=== PATIENT | male | born 2005 | race Caucasian/White ===

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

== ENCOUNTER 2024-04-15 13:54 | Emergency (ER) | payer BC, SELFPAY ==
--- NOTE | ~2024-04-15 | XR_ITS ---
HISTORY: INJURY TO LEFT ANKLE DANCING. MEDIAL AND LATERAL COMPARISON: None TECHNIQUE: 3 views of the left ankle were performed FINDINGS: No acute fracture or dislocation. Lateral soft tissue swelling. The ankle mortise is preserved. Bone mineralization is age-appropriate. IMPRESSION: Lateral soft tissue swelling without acute fracture. Reviewed, dictated and finalized at location A. T MACHINE OPERATOR
[2024-04-15 15:06] VITALS: BP 125/70; PULSE 82; RESP 16; TEMP 37.1; O2SAT 99
--- NOTE | 2024-04-15 15:24 | ED.LOWEXIN ---
HPI - Extremity Injury (Lower) General Chief Complaint: Extremity Injury, Lower Stated Complaint: Injured Left Ankle Time Seen by Provider: 04/15/24 15:17 Source: patient and RN notes reviewed Mode of arrival: ambulatory (hopped) Limitations: no limitations History of Present Illness HPI Narrative: Patient presents today complaining of an injury to his left ankle. States he rolled yesterday dancing. Denies numbness or tingling. Currently rates his pain 8/10 and has been taking Tylenol and ibuprofen without relief. States he has been unable to weightbear. Related Data Home Medications ?Medication ?Instructions ?Recorded ?Confirmed ?Last Taken ?Type No Home Medications 04/15/24 04/15/24 Unknown History Allergies Allergy/AdvReac Type Severity Reaction Status Date / Time No Known Allergies Allergy Verified 04/15/24 14:49 Review of Systems Review of Systems: CONSTITUTIONAL: Denies body aches, fever, chills, or sweats. EYES: Denies visual changes, redness, or discharge. ENT: Denies rhinorrhea, congestion, sore throat, or otalgia. CARDIOVASCULAR: Denies chest pain, palpitations, or edema. RESPIRATORY: Denies cough or dyspnea. GASTROINTESTINAL: Denies abdominal pain, nausea, vomiting, or diarrhea. GENITOURINARY: Denies dysuria or hematuria. SKIN: Denies rash, itching, or wounds. MUSCULOSKELETAL: Denies back pain, or myalgia.+ left ankle injury NEUROLOGIC: Denies headache, numbness, tingling, or weakness. PSYCH: Denies depression or anxiety. PMFSH Comments At time of signature, I have reviewed and agree with nursing past medical, surgical, social and family history unless otherwise noted. Please see nursing chart for further information. There is no relevant family history pertinent to the presenting complaint Exam Narrative: GENERAL: Well-appearing, well-nourished, and in no acute distress. HEAD: Normocephalic, atraumatic. EYES: EOMI. No redness or drainage. Conjunctivae normal. ENT: Mucous membranes pink and moist. NECK: Normal AROM. CHEST: No respiratory distress. EXTREMITIES: Left ankle: Tenderness and mild edema to the medial and lateral ankle. No tenderness to the foot. Distal sensation intact. Capillary refill normal. Pedal pulse normal. Limited range of motion of the ankle due to pain. SKIN: Warm, dry, no rash. Capillary refill normal. Normal skin turgor. NEURO: No focal deficits. Alert and oriented x3. Gait steady. PSYCH: Normal affect. No signs of depression or anxiety. Course Course Level of Care: Express Care Visit Vital Signs Vital signs: Vital Signs Temperature 98.7 F 04/15/24 15:06 Pulse Rate 82 04/15/24 15:06 Respiratory Rate 16 04/15/24 15:06 Blood Pressure 125/70 04/15/24 15:06 Pulse Oximetry 99 04/15/24 15:06 Temperature 98.7 F 04/15/24 15:06 Pulse Rate 82 04/15/24 15:06 Respiratory Rate 16 04/15/24 15:06 Blood Pressure 125/70 04/15/24 15:06 Pulse Oximetry 99 04/15/24 15:06 Reviewed MDM - Extremity Injury (Lower) MDM Narrative Medical decision making narrative: And ankle x-ray is negative for fracture. Tl wrap and crutches applied. Conservative treatment recommended with orthopedic follow-up if symptoms persist. Differential Diagnosis Differential diagnosis: Likely ankle sprain and strain and ankle fracture Imaging Data Radiologist's impression: ITS Impressions Ankle X-Ray 04/15/24 15:11 IMPRESSION: Lateral soft tissue swelling without acute fracture. Critical Care Time Critical Care Time Critical Care Time: No Discharge Plan Discharge Clinical Impression: Left ankle sprain Qualifiers: Encounter type: initial encounter Involved ligament of ankle: unspecified ligament Qualified Code(s): S93.402A - Sprain of unspecified ligament of left ankle, initial encounter Patient Disposition: Home, Self-Care Condition: Stable Instructions: Ankle Sprain (DC) Additional Instructions: Your ankle x-ray is negative for fracture. Wear the Tl wrap for comfort and stability. Advance your activity as tolerated. Elevate and ice the ankle. Continue Tylenol or ibuprofen for pain. Follow-up with your PCP or orthopedic physician in 7-10 days if symptoms are not improving. Your blood pressure was elevated above 120/80 today at Urgent Care. This puts you above the threshold for follow up. Please schedule a followup visit with your personal physician as soon as possible, for further evaluation and treatment. Even blood pressure exceeding 120/80 may indicate pre-hypertension. Patient Language: Maltese Prescriptions: No Action No Home Medications Follow-up/Referrals: PHYSICIAN,PUBLIC HEALTH ENGINEER [Primary Care Provider] - Saúl Mckenzie MD [Physician] - Stand Alone Forms: Work/School Release IP Time of Disposition: 15:28
== END 2024-04-15 15:40 | disposition home or self-care (01) ==
PROVIDERS: Emergency Provider Nurse Practitioner
DX: S93.402A Sprain of unspecified ligament of left ankle, initial encounter (principal); X50.9XXA Other and unspecified overexertion or strenuous movements or postures, initial encounter; Y93.41 Activity, dancing
CPT/HCPCS: 73610; 99203; G0463

== ENCOUNTER 2025-03-10 08:29 | Emergency (ER) | payer BC, SELFPAY ==
[2025-03-10 08:41] VITALS: BP 137/67; PULSE 84; RESP 16; TEMP 36.6; O2SAT 100
--- NOTE | 2025-03-10 09:18 | ED_ITS ---
HPI - URI/Sore Throat General Chief Complaint: Upper Respiratory Infection Stated Complaint: Strep Symptoms Time Seen by Provider: 03/10/25 09:10 Source: patient and RN notes reviewed Mode of arrival: ambulatory Limitations: no limitations History of Present Illness HPI Narrative: 19-year-old male patient presents today complaining of sore throat, congestion, chills since yesterday. Denies fever, shortness of breath, difficulty swallowing. Currently rates his pain 8/10 and has been taking Tylenol and ibuprofen without much improvement. Related Data Home Medications ?Medication ?Instructions ?Recorded ?Confirmed ?Last Taken ?Type No Home Medications 04/15/24 04/15/24 U nknown History Allergies Allergy/AdvReac Type Severity Reaction Status Date / Time No Known Allergies Allergy Verified 03/10/25 08:41 [facility] Comments At time of signature, I have reviewed and agree with nursing past medical, surgical, social and family history unless otherwise noted. Please see nursing chart for further information. There is no relevant family history pertinent to the presenting complaint Exam Narrative: GENERAL: Mildly ill-appearing, well-nourished, and in no acute distress. HEAD: Normocephalic, atraumatic. EYES: EOMI. No redness or drainage. Conjunctivae normal. ENT: Mucous membranes pink and moist. Nares clear. No rhinorrhea. TMs normal bilaterally. Throat moderately erythematous. Tonsils 3+bilaterally. Uvula midline. NECK: Normal AROM. Supple. Right anterior cervical chain lymphadenopathy. CHEST: No respiratory distress. Clear to auscultation. HEART: Regular rate and rhythm. No murmur appreciated. EXTREMITIES: Normal range of motion. No edema. SKIN: Warm, dry, no rash. Capillary refill normal. Normal skin turgor. NEURO: No focal deficits. Alert and oriented x3. Gait steady. PSYCH: Normal affect. No signs of depression or anxiety. Course Course Level of Care: Express Care Visit Vital Signs Vital signs: Vital Signs Temperature 97.9 F 03/10/25 08:41 Pulse Rate 84 03/10/25 08:41 Respiratory Rate 16 03/10/25 08:41 Blood Pressure 137/67 03/10/25 08:41 Pulse Oximetry 100 03/10/25 08:41 Temperature 97.9 F 03/10/25 08:41 Pulse Rate 84 03/10/25 08:41 Respiratory Rate 16 03/10/25 08:41 Blood Pressure 137/67 03/10/25 08:41 Pulse Oximetry 100 03/10/25 08:41 Reviewed MDM - URI/Sore Throat MDM Narrative Medical decision making narrative: 19-year-old male patient presents today complaining of sore throat, congestion, chills since yesterday. Denies fever, shortness of breath, difficulty swallowing. Currently rates his pain 8/10 and has been taking Tylenol and ibuprofen without much improvement. Upon exam, patient is mildly ill appearing.Throat moderately erythematous. Tonsils 3+bilaterally. Uvula midline. Right anterior cervical chain lymphadenopathy. Rapid strep negative. Culture pending. Dose of 10 mg dexamethasone given for discomfort and had inflammation of the tonsils. Vital signs stable. Symptoms likely viral in etiology. Discussed OTC medications and duration of illness. Anticipatory guidance given. Patient agrees with plan. Differential Diagnosis Differential diagnosis: Likely upper respiratory infection, viral infection, pharyngitis and other (Strep throat) Lab Data Attestation: I reviewed the patient's lab results. Lab results narrative: Rapid strep negative Critical Care Time Critical Care Time Critical Care Time: No Discharge Plan Discharge Clinical Impression: Upper respiratory infection Qualifiers: URI type: unspecified URI Qualified Code(s): J06.9 - Acute upper respiratory infection, unspecified Patient Disposition: Home Condition: Stable Instructions: Upper Respiratory Infection (DC) Additional Instructions: Your rapid strep swab was negative today at [facility]. You will be notified in a few days if the culture comes back positive for strep, and appropriate antibiotics will be called in for you at that time. Your symptoms are likely due to a viral illness, which is not treated with antibiotics. Viral symptoms can be present for up to 7-10 days. Take Tylenol or ibuprofen for fever or pain. Rest and stay hydrated. Follow up with your PCP in 7 days if symptoms are not improving. Go to the ER immediately if you have any difficulty breathing or swallowing. Patient Language: Icelandic Prescriptions: No Action No Home Medications Follow-up/Referrals: PHYSICIAN,CUSTOMER INSIGHT ANALYST [Primary Care Provider, Internal Medicine] Stand Alone Forms: Work/School Release IP Time of Disposition: :23
[2025-03-10] MEDS: dexAMETHasone SOD PHOS INJ 10 MG/ML 1 ML VIAL BY MOUTH (09:25)
[2025-03-11 11:51] LABS: EDSTREPNEGPOS1 Negative (Negative)
== END 2025-03-10 09:36 | disposition home or self-care (01) ==
PROVIDERS: Emergency Provider Nurse Practitioner
DX: J06.9 Acute upper respiratory infection, unspecified (principal)
CPT/HCPCS: 87081; 87880; 99213; G0463; J1100

== ENCOUNTER 2025-03-21 15:20 | Observation (INO) | payer BC, SELFPAY ==
[2025-03-21] VITALS (8 sets, daily range): BP systolic 126–151; BP diastolic 60–83; PULSE 86–116; RESP 10–23; TEMP 35.9–37.1; O2SAT 97–100
--- NOTE | ~2025-03-21 | CT_ITS ---
EXAMINATION: CT brain wo con COMPARISON: None HISTORY: near syncope, L sided weakness TECHNIQUE: Axial images were obtained through the brain without IV contrast. CT scan performed using dose optimization techniques including the following automated exposure control; adjustment of mA and/or kV; use of iterative reconstruction technique. Automatic exposure control was used to reduce radiation dose. Permanent radiation dose record is archived to PACS. FINDINGS: No acute infarct or parenchymal hemorrhage. No abnormal mass or mass effect. No midline shift. No extra-axial fluid collections. No hydrocephalus. . Mastoid air cells unremarkable. Sinuses and orbits unremarkable. No acute fracture. No significant facial or scalp soft tissue swelling evident. No radiopaque foreign body is seen. Impression: 1.No acute intracranial abnormality. Reviewed, dictated and finalized at location P. STOCK DEALER Impression: 1.No acute intracranial abnormality.
--- NOTE | ~2025-03-21 | XR_ITS ---
EXAMINATION: XR chest 1V, 03/21/2025 16:20 SEWER SEPARATION DESIGNER HISTORY: cva w/u, cp COMPARISON: No comparisons available. Technique: Single view. Findings: The lungs are clear, no effusion. No pneumothorax. Heart is normal size. Mediastinal and hilar contours are within normal limits. Bony thorax no acute abnormality. Impression: No acute cardiopulmonary abnormality. Reviewed, dictated and finalized at location P. R SEPARATION DESIGNER Impression: No acute cardiopulmonary abnormality.
--- NOTE | ~2025-03-21 | CT_ITS ---
CTA brain carotid HISTORY: CTA HEAD AND NECK. stroke like symptoms CTA HEAD AND NECK. stroke like symptoms REFERENCE: [None available.] TECHNIQUE: Axial mm images of the head and neck were obtained without and with infusion of contrast dose of intravenous contrast. Postcontrast 1.25 mm axial images were then obtained. On an independent workstation, 0.625 mm axial images were utilized to render MIP and MPR images of the intracranial circulation. CTA NECK: The aortic arch demonstrates normal caliber and patency. Normal branching pattern is noted of the supraaortic vessels. The origins of the supraaortic vessels are widely patent.. The common carotid and cervical segments of the ICA and ECA demonstrate normal caliber and patency. Stenotic but patent left vertebral artery with dominant right vertebral artery. CTA HEAD: The intracranial ICA, AMANDA, and MCA demonstrate normal caliber and patency. No hemodynamically significant stenosis or aneurysm is identified. The distal vertebral, basilar, and bilateral posterior cerebral arteries demonstrate normal caliber and patency. The superior cerebellar arteries are also widely patent. NONVASCULAR FINDINGS: The soft tissue of the neck is unremarkable. No mass or pathologic enhancement is noted. There is no pathologically enlarged lymphadenopathy. The airway is patent. No acute intracranial hemorrhage, mass, or extraaxial fluid collections are noted. Ventricular size is normal. The skull is intact. The visualized mastoid air cells and sinuses are clear. There is no pathologic enhancement. IMPRESSION: No hemodynamically significant stenosis is noted of the cervical and intracranial arterial vasculature. Stenotic but patent left vertebral artery with dominant right vertebral artery. Reviewed, dictated and finalized at location S. ETRIC SCREENER IMPRESSION: No hemodynamically significant stenosis is noted of the cervical and intracrani al arterial vasculature. Stenotic but patent left vertebral artery with dominant right vertebral artery.
--- NOTE | 2025-03-21 15:27 | ECG_ITS ---
Test Date: 2025-03-21 15:35:42 Measurements Intervals [place] Rate: 91 P: 42 IA: 132 QRS: 67 QRSD: 98 T: 41 QT: 325 QTc: 401 Interpretive Statements SINUS RHYTHM NORMAL ECG No previous ECG available for comparison Electronically Signed On 03-21-2025 15:37:53 DEPOSITION OPERATOR by Lewis Marsh D.O.
--- NOTE | 2025-03-21 16:17 | ED_ITS ---
HPI - Chest Pain General Chief Complaint: Chest Pain <KERLINE Raymond Last Filed: 03/21/25 18:38> Stated Complaint: pre-syncope yesterday at the gym <KERLINE Raymond Last Filed: 03/21/25 18:38> Time Seen by Provider: 03/21/25 15:37 <KERLINE Raymond Last Filed: 03/21/25 18:38> Source: patient <KERLINE Raymond Last Filed: 03/21/25 18:38> Mode of arrival: ambulatory <KERLINE Raymond Last Filed: 03/21/25 18:38> Limitations: no limitations <KERLINE Raymond Last Filed: 03/21/25 18:38> History of Present Illness HPI narrative: Patient is a 19-year-old male who presents the ED with report of near syncope and left-sided weakness. Patient reports he was at the gym working out with a friend last night around 8pm and had completed approx 8 minutes of a light-impact work out when he began feeling very weak/lightheaded, tingling throughout his L sided body, diffuse chest pain, and states his vision went black. He did not fully lose consciousness. He did not fall or hit his head. His friend helped him to a chair to sit down and gave him a protein shake. He then felt slightly better, but still felt tingly throughout his body. He went home that night and went to bed. He states this morning he woke up with persistent weakness, numbness/tingling/pins and needles sensation in his left- sided body, as well as persistent chest pain. Reports occasional dizziness. Denies headache, vision changes, shortness of breath <KERLINE Raymond Last Filed: 03/21/25 18:38> Related Data Home Medications: Home Medications ?Medication ?Instructions ?Recorded ?Confirmed ?Last Taken ?Type No Home Medications 04/15/24 04/15/24 U nknown History <KERLINE Raymond Last Filed: 12/04/25 18:38> Allergies/Adverse Reactions: Allergies Allergy/AdvReac Type Severity Reaction Status Date / Time No Known Allergies Allergy Verified 03/21/25 15:42 <Carmen Booth PA-C - Last Filed: 03/21/25 18:38> Review of Systems 2 Review of Systems: All systems reviewed & are unremarkable except as noted in HPI. <Carmen Booth PA-C - Last Filed: 03/21/25 18:38> All systems reviewed & are unremarkable except as noted in HPI and below < Carmen Booth PA-C - Last Filed: 03/21/25 18:38> Exam 2 Narrative: GENERAL: Well appearing, well-nourished, non-toxic, in no acute distress. HEAD: Normocephalic, atraumatic. EYES: PERRL/EOMI, conjunctivae clear bilaterally. No nystagmus. NECK: Supple. No meningeal signs. RESPIRATORY: Airway patent, respirations nonlabored. Clear to auscultation bilaterally, no rales, rhonchi, wheezing. CARDIOVASCULAR: Borderline tachycardic with regular rhythm without murmurs, rubs, or gallops. Peripheral pulses 2+ and equal bilaterally. MUSCULOSKELETAL: Moves all extremities. No gross deformities. SKIN: Warm, dry, normal color. No rashes. NEURO: A&O X3. Speech clear. Follows commands. CN II-XII intact. Subjective decreased sensation in left sided arm/leg compared to R. Strength decreased in left arm and left leg compared to R, positive drift in L arm and L leg. [id number] and [id number] testing intact, but discoordinated on LUE/LLE. Slight decreased care worker strength on L hand. PSYCHIATRIC: Appropriate mood and affect. Normal interaction. <Carmen Booth PA-C - Last Filed: 03/21/25 18:38> Course EAP CONSULTANT/PA Physician Supervision This visit was performed by both a physician and an APC; I performed all aspects of the medical decision making component of this evaluation as documented. <Juanis Trejo MD - Last Filed: 03/21/25 18:40> Vital Signs Vital signs: Vital Signs Temperature 97.3 F L 03/21/25 15:25 Pulse Rate 116 H 03/21/25 15:25 Respiratory Rate 20 03/21/25 15:25 Blood Pressure 151/83 H 03/21/25 15:25 Pulse Oximetry 97 03/21/25 15:25 Oxygen Delivery Room Air 03/21/25 15:25 Temperature 97.3 F L 03/21/25 15:25 Pulse Rate 102 H 03/21/25 17:21 Respiratory Rate 20 03/21/25 15:25 Blood Pressure 126/60 03/21/25 17:21 Pulse Oximetry 97 03/21/25 15:25 Oxygen Delivery Room Air 03/21/25 15:25 <Carmen Booth PA-C - Last Filed: 03/21/25 18:38> Vital Signs Temperature 97.3 F L 03/21/25 15:25 Pulse Rate 116 H 03/21/25 15:25 Respiratory Rate 20 03/21/25 15:25 Blood Pressure 151/83 H 03/21/25 15:25 Pulse Oximetry 97 03/21/25 15:25 Oxygen Delivery Room Air 03/21/25 15:25 Temperature 97.3 F L 03/21/25 15:25 Pulse Rate 102 H 03/21/25 17:21 Respiratory Rate 20 03/21/25 15:25 Blood Pressure 126/60 03/21/25 17:21 Pulse Oximetry 97 03/21/25 15:25 Oxygen Delivery Room Air 03/21/25 15:25 <Juanis Trejo MD - Last Filed: 03/21/25 18:40> MDM MDM Narrative Medical decision making narrative: Patient presented to ED with near syncopal episode last night, reporting persistent chest pain and left-sided weakness/sensory changes since this morning. Vital signs are stable upon arrival. Patient mildly tachycardic, though he does appear mildly anxious. On exam, he does have decreased subjective sensation to left side as well as weakness/discoordination to left arm and left leg. Patient's last known well was last night, reporting he has had the symptoms since waking up. He is certainly out of the window for any thrombolytic therapy. [facility] 5 CT brain without acute findings Chest x-ray clear EKG with sinus rhythm, no significant concerning ST changes. Troponin undetectable Heart score of 1. Low suspicion for ACS D-dimer within normal range Basic laboratory studies are fairly unremarkable however CK is markedly elevated to just over 4000. Patient was also slightly orthostatic by heart rate increasing with position changes. Attempted fluids however patient initially refused IV On repeat examinations, patient seems to be using his left side more, but complains of subjective weakness. Unable to definitively rule out CVA/acute central process versus demyelinating condition. Discussed case with Dr. Garcia, neurology, agrees w/ plan for admission/MRI Discussed recommendations for admission with patient for further management of rhabdo, neurologic eval. He is in agreement with plan. Discussed case with Emily ESTEVEZ hospitalist, accepted patient for admission. In agreement with obtaining IV/fluids initiated. <Carmen Booth PA-C - Last Filed: 03/21/25 18:38> Differential Diagnosis Differential Diagnosis: CVA/TIA, intracranial bleed, demyelinating condition, vasovagal near syncope, dysrhythmia, acs, pe, rhabdo <Carmen Booth PA-C - Last Filed: 03/21/25 18:38> Medical Records I have reviewed the following patient records and this information was taken into consideration when formulating the assessment and plan.: previous labs, previous ER visits, previous hospitalizations and previous clinic visits <Carmen Booth PA-C - Last Filed: 03/21/25 18:38> Lab Data MDM Lab Attestation statement: I personally reviewed the patient's lab results. <KERLINE Raymond Last Filed: 03/21/25 18:38> Result diagrams: 03/21/25 16:34 03/21/25 16:34 <KERLINE Raymond Last Filed: 03/21/25 18:38> Labs: Lab Results 03/21/25 03/21/25 Range/Units 16:34 16:34 WBC 11.7 H (4.5-10.0) K/mm3 RBC 4.94 (4.6-6.20) M/mm3 Hgb 15.5 (14.0-18.0) g/dL Hct 46.4 (42.0-52.0) % MCV 93.9 (80-100) fl MCH 31.4 (26-34) pg MCHC 33.4 (32-36) g/dl RDW 14.2 (11.5-14.5) % Plt Count 415 H (150-375) k/mm3 MPV 8.8 (7.4-10.4) fl Immature Gran % (Auto) 0.5 (0-0.5) % Neut % (Auto) 66.7 (45.5-73.1) % Lymph % (Auto) 20.4 (18.3-44.2) % [place] % (Auto) 9.8 H (2.6-8.5) % Eos % (Auto) 2.1 (0-4.4) % Baso % (Auto) 0.5 (0.2-1.2) % Lymph # (Auto) 2.39 (0.9-3.2) K/mm3 [place] # (Auto) 1.1 H (0.1-0.6) K/mm3 Eos # (Auto) 0.2 (0-0.3) K/mm3 Baso # (Auto) 0.1 (0.0-0.1) K/mm3 Abs Immat Gran (auto) 0.06 H (0.00-0.031) K/mm3 Absolute Neuts (auto) 7.8 H (1.3-6.7) K/mm3 Absolute Nucleated RBC 0.000 (0.0-0.012) K/mm3 Nucleated RBC % 0.0 (0.0-0.2) % PT 14.3 (11.1-14.7) Seconds INR 1.1 APTT 29.0 (22.3-36.8) Seconds D-Dimer < 0.27 (<0.48) ug/mL Sodium 141 (137-145) mmol/L Potassium 4.0 (3.4-5.0) mmol/L Chloride 106 (98-107) mmol/L Carbon Dioxide 28 (22-30) mmol/L Anion Gap 7 (4-12) mmol/L BUN 15 (9-20) mg/dL Creatinine 1.00 (0.7-1.3) mg/dL Estim Creat Clear Calc 107 ml/min Estimated GFR > 60 (59 - ) Glucose 94 (65-110) mg/dL Calcium 9.5 (8.4-10.2) mg/dL Magnesium Cancelled 1.9 Total Bilirubin 0.7 (0.2-1.3) mg/dL AST 62 H (17-59) U/L ALT 30 (6-50) U/L Alkaline Phosphatase 68 (38-126) U/L Total Creatine Kinase 4052 H (55-170) U/L Troponin I < 0.012 (0.000-0.034) ng/mL Total Protein 7.4 (6.3-8.2) g/dL Albumin 4.3 (3.5-5.1) g/dL <Carmen Booth PA-C - Last Filed: 03/21/25 18:38> Lab Results 03/21/25 03/21/25 Range/Units 16:34 16:34 WBC 11.7 H (4.5-10.0) K/mm3 RBC 4.94 (4.6-6.20) M/mm3 Hgb 15.5 (14.0-18.0) g/dL Hct 46.4 (42.0-52.0) % MCV 93.9 (80-100) fl MCH 31.4 (26-34) pg MCHC 33.4 (32-36) g/dl RDW 14.2 (11.5-14.5) % Plt Count 415 H (150-375) k/mm3 MPV 8.8 (7.4-10.4) fl Immature Gran % (Auto) 0.5 (0-0.5) % Neut % (Auto) 66.7 (45.5-73.1) % Lymph % (Auto) 20.4 (18.3-44.2) % [place] % (Auto) 9.8 H (2.6-8.5) % Eos % (Auto) 2.1 (0-4.4) % Baso % (Auto) 0.5 (0.2-1.2) % Lymph # (Auto) 2.39 (0.9-3.2) K/mm3 [place] # (Auto) 1.1 H (0.1-0.6) K/mm3 Eos # (Auto) 0.2 (0-0.3) K/mm3 Baso # (Auto) 0.1 (0.0-0.1) K/mm3 Abs Immat Gran (auto) 0.06 H (0.00-0.031) K/mm3 Absolute Neuts (auto) 7.8 H (1.3-6.7) K/mm3 Absolute Nucleated RBC 0.000 (0.0-0.012) K/mm3 Nucleated RBC % 0.0 (0.0-0.2) % PT 14.3 (11.1-14.7) Seconds INR 1.1 APTT 29.0 (22.3-36.8) Seconds D-Dimer < 0.27 (<0.48) ug/mL Sodium 141 (137-145) mmol/L Potassium 4.0 (3.4-5.0) mmol/L Chloride 106 (98-107) mmol/L Carbon Dioxide 28 (22-30) mmol/L Anion Gap 7 (4-12) mmol/L BUN 15 (9-20) mg/dL Creatinine 1.00 (0.7-1.3) mg/dL Estim Creat Clear Calc 107 ml/min Estimated GFR > 60 (59 - ) Glucose 94 (65-110) mg/dL Calcium 9.5 (8.4-10.2) mg/dL Magnesium Cancelled 1.9 Total Bilirubin 0.7 (0.2-1.3) mg/dL AST 62 H (17-59) U/L ALT 30 (6-50) U/L Alkaline Phosphatase 68 (38-126) U/L Total Creatine Kinase 4052 H (55-170) U/L Troponin I < 0.012 (0.000-0.034) ng/mL Total Protein 7.4 (6.3-8.2) g/dL Albumin 4.3 (3.5-5.1) g/dL <Juanis Trejo MD - Last Filed: 03/21/25 18:40> Imaging Data Attestation: I personally reviewed and interpreted this imaging study as follows: < Carmen Booth PA-C - Last Filed: 03/21/25 18:38> Radiologist's impression: ITS Impressions Head CT 03/21/25 16:26 Impression: 1.No acute intracranial abnormality. Chest X-Ray 03/21/25 16:30 Impression: No acute cardiopulmonary abnormality. <Carmen Booth PA-C - Last Filed: 03/21/25 18:38> ITS Impressions Head CT 03/21/25 16:26 Impression: 1.No acute intracranial abnormality. Chest X-Ray 03/21/25 16:30 Impression: No acute cardiopulmonary abnormality. <Juanis Trejo MD - Last Filed: 03/21/25 18:40> ECG Data EKG #1: Attestation: I personally reviewed and interpreted this ECG as follows: <Carmen Booth PA-C - Last Filed: 03/21/25 18:38> ECG completion date: 03/21/25 <Carmen Booth PA-C - Last Filed: 03/21/25 18:38> ECG completion time: 15:35 <KERLINE Raymond Last Filed: 03/21/25 18:38> normal rate (91), sinus rhythm and no ST changes <Carmen Booth PA-C - Last Filed: 03/21/25 18:38> Discharge Plan Discharge Clinical Impression: Left-sided weakness, Near syncope, Atypical chest pain Rhabdomyolysis Qualifiers: Rhabdomyolysis type: non-traumatic Qualified Code(s): M62.82 - Rhabdomyolysis <Carmen Booth PA-C - Last Filed: 03/21/25 18:38> Patient Disposition: Still a Patient <KERLINE Raymond Last Filed: 03/21/25 18:38> Condition: Stable <Carmen Booth PA-C - Last Filed: 03/21/25 18:38> Patient Language: Moldovan <KERLINE Raymond Last Filed: 03/21/25 18:38> Prescriptions: No Action No Home Medications <KERLINE Raymond Last Filed: 03/21/25 18:38> Follow-up/Referrals: PHYSICIAN,MENTAL HEALTH PROGRAM MANAGER [Primary Care Provider, Internal Medicine] <KERLINE Raymond Last Filed: 03/21/25 18:38> Quality Stroke Scale Stroke Scale 1: Stroke scale date:: 03/21/25 <KERLINE Raymond Last Filed: 03/21/25 18:38> Stroke scale time:: 15:35 <Carmen Booth PA-C - Last Filed: 03/21/25 18:38> 1a Level of consciousness: alert-0 <Carmen Booth PA-C - Last Filed: 03/21/25 18:38> 1b Level of consciousness questions: answers both correctly-0 <Carmen Booth PA-C - Last Filed: 03/21/25 18:38> 1c Level of consciousness commands: obeys both correctly-0 <Carmen Booth PA-C - Last Filed: 03/21/25 18:38> 2 Best gaze: normal-0 <Carmen Booth PA-C - Last Filed: 03/21/25 18:38> 3 Visual: no visual loss-0 <Carmen Booth PA-C - Last Filed: 03/21/25 18:38> 4 Facial palsy: normal-0 <Carmen Booth PA-C - Last Filed: 03/21/25 18:38> 5a Motor: left arm: drift-1 <Carmen Booth PA-C - Last Filed: 03/21/25 18:38> 5b Motor: right arm: no drift-0 <Carmen Booth PA-C - Last Filed: 03/21/25 18:38> 6a Motor: left leg: drift-1 <Carmen Booth PA-C - Last Filed: 03/21/25 18:38> 6b Motor: right leg: no drift-0 <Carmen Booth PA-C - Last Filed: 03/21/25 18:38> 7 Limb ataxia: present in two limbs-2 <KERLINE Raymond Last Filed: 03/21/25 18:38> 8 Sensory: pinprick less sharp-1 <KERLINE Raymond Last Filed: 03/21/25 18:38> 9 Best language: no aphasia-0 <Carmen Booth PA-C - Last Filed: 03/21/25 18:38> 10 Dysarthria: normal-0 <Carmen Booth PA-C - Last Filed: 03/21/25 18:38> 11 Extinction and inattention: no abnormality-0 <Carmen Booth PA-C - Last Filed: 03/21/25 18:38> Level:: 5 <Carmen Booth PA-C - Last Filed: 03/21/25 18:38> 5 <Juanis Trejo MD - Last Filed: 03/21/25 18:40> HEART score for chest pain patients History: slightly suspicious <Carmen Booth PA-C - Last Filed: 03/21/25 18:38> ECG: normal <Carmen Booth PA-C - Last Filed: 03/21/25 18:38> Age: < or = to 45 years <Carmen Booth PA-C - Last Filed: 03/21/25 18:38> Risk factors: no risk factors known <Carmen Booth PA-C - Last Filed: 03/21/25 18:38> Troponin: < or = to 1x normal limit <Carmen Booth PA-C - Last Filed: 03/21/25 18:38> Heart score: 0 <Carmen Booth PA-C - Last Filed: 03/21/25 18:38> 0 <Juanis Trejo MD - Last Filed: 03/21/25 18:40>
[2025-03-21 16:46] LABS: Hematocrit 46.4 % (42.0-52.0); Hemoglobin 15.5 g/dL (14.0-18.0); Immature Granulocyte Percent A 0.5 % (0-0.5); Lymphocytes Absolute Auto 2.39 K/mm3 (0.9-3.2); Mean Corpuscular HGB Conc 33.4 g/dl (32-36); Mean Corpuscular Hemoglobin 31.4 pg (26-34); Mean Corpuscular Volume 93.9 fl (80-100); Nucleated Red Blood Cells Absolute Auto 0.000 K/mm3 (0.0-0.012); Nucleated Red Blood Cells Perc 0.0 % (0.0-0.2); Platelet Count Result 415 k/mm3 (150-375); Red Blood Count 4.94 M/mm3 (4.6-6.20); White Blood Count 11.7 K/mm3 (4.5-10.0)
[2025-03-21 16:57] LABS: Alanine Aminotransferase 30 U/L (6-50); Albumin Level 4.3 g/dL (3.5-5.1); Alkaline Phosphatase 68 U/L (38-126); Anion Gap 7 mmol/L (4-12); Aspartate Amino Transferase 62 U/L (17-59); Bilirubin,Total 0.7 mg/dL (0.2-1.3); Blood Urea Nitrogen 15 mg/dL (9-20); Calcium 9.5 mg/dL (8.4-10.2); Carbon Dioxide 28 mmol/L (22-30); Chloride 106 mmol/L (98-107); Estimated CRCL calculation 107 ml/min; Estimated Glomerular Filt Rate > 60; Glucose 94 mg/dL (65-110); Potassium 4.0 mmol/L (3.4-5.0); Sodium 141 mmol/L (137-145); Total Protein 7.4 g/dL (6.3-8.2)
[2025-03-21 17:04] LABS: INR 1.1; Prothrombin Time 14.3 Seconds (11.1-14.7)
[2025-03-21 17:05] LABS: Partial Thromboplastin Time 29.0 Seconds (22.3-36.8)
[2025-03-21 17:09] LABS: Troponin I < 0.012 ng/mL (0.000-0.034)
--- NOTE | 2025-03-21 17:36 | PC.NURSE ---
pt states he is not wanting an IV unless absolutely necessary. YOON Morales made aware.
[2025-03-21 17:53] LABS: Creatine Kinase 4052 U/L (55-170)
[2025-03-21 18:12] LABS: Magnesium 1.9 mg/dL (1.6-2.3)
[2025-03-21] MEDS: SODIUM CHLORIDE 0.9% IV 1,000 ML 999 ML IV CONT ×2 (19:13→19:45)
[2025-03-21] MEDS: SODIUM CHLORIDE 0.9% IV 1,000 ML 200 ML IV CONT (19:45)
[2025-03-21 19:57] LABS: Troponin I < 0.012 ng/mL (0.000-0.034)
--- NOTE | 2025-03-21 21:39 | P.HP_ITS ---
H&P: HPI History of Present Illness Date/Time: 03/21/25 21:39 Chief Complaint: Weakness Narrative: 19-year-old male presents to [facility] ER on 03/21/2024 with left-sided weakness. Patient his began to lift weights, on 03/18 and 03/19 he has been doing moderate intensity lifting. On 03/20/2025 patient was at the gym around 8:00 p.m. with his friend, after stretching he was walking up stairs any suddenly felt weak, dizzy, almost passed out, left-sided chest and rib pain heavy/sharp, word- finding difficulty, left-sided arm and leg weakness and numbness. Feels as if he has been hydrating well. Went home to sleep, when he woke on 03/21/2025 his symptoms were persisting and sought further evaluation. He tells me for many years he has had infrequent episodes of dyspnea on exertion and left-sided chest pain which is sharp/heavy. No alleviating factors and they resolve on their own. 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 No secondhand smoke exposure. He tells me he is adopted, he was born in [place] to a mother addicted to heroin. He shows me an overall summary from [facility] which denotes the following: May 2004 patient was in department of pathology, diagnosed with cerebral ischemia of the second-degree (intraventricular hemorrhage), trauma of the cervical spine, dislocation of C1-C2 forward, vertebrobasilar ischemia. 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 Hypertensive syndrome. Neurology consulted from the ER. NIH stroke scale of 5. Intermittent sinus tachycardia, anxious appearing. Blood pressure 126/75, afebrile. WBC 43752, platelets 415, hemoglobin 15.5, INR 1.1, PTT 29, D-dimer 0.27, Chem 7 within normal limits, AST slightly elevated at 62, creatinine kinase 4500, troponin negative x2. Chest x-ray no acute findings, head CT no acute findings. CTA head and neck showing no hemodynamically significant stenosis. Stenotic but patent left vertebral artery with dominant right vertebral artery. Patient was given 3 L normal saline bolus, started on continuous fluids. Review of Systems Review of Systems: All systems reviewed & are unremarkable except as noted in HPI and below (Subjective) Meds Home Medications and Allergies Home Medications ?Medication ?Instructions ?Recorded ?Confirmed ?Type No Home Medications 04/15/24 04/15/24 H istory Allergies Allergy/AdvReac Type Severity Reaction Status Date / Time No Known Allergies Allergy Verified 03/21/25 15:42 Vital Signs Vital Signs - 24 hr 03/21/25 15:25 03/21/25 15:42 03/21/25 17:21 Temperature 97.3 F L Pulse Rate 116 H 90 86 Respiratory Rate 20 Blood Pressure 151/83 H 127/66 Pulse Oximetry 97 Oxygen Delivery Room Air 03/21/25 17:21 03/21/25 17:21 03/21/25 19:12 Temperature Pulse Rate 95 102 H 98 Respiratory Rate 15 Blood Pressure 126/75 126/60 128/74 Pulse Oximetry 98 Oxygen Delivery 03/21/25 20:01 03/21/25 21:10 Temperature 98.4 F 98.7 F Pulse Rate 95 102 H Respiratory Rate 19 10 L Blood Pressure 133/75 132/78 Pulse Oximetry 100 100 Oxygen Delivery Exam Const: General: comfortable and no acute distress Other: A&O x4. Reproducible chest pain at the left ribs and left upper chest. No lesions, no rashes. HENMT: Mouth: Yes moist mucous membranes Eyes: Pupils: Equal, round and reactive pupils present Neck: Neck: supple Resp: Effort & Inspection: normal respiratory effort Auscultation: clear to auscultation bilaterally Cardio: Rate: regular rate Rhythm: regular rhythm GI: Inspection: distended GI Palp: Yes Soft to palpation Neuro: Other: Visual field intact, no facial droop. Tongue and uvula midline. Deep tendon reflexes intact. No ataxia. Sensation significantly decreased to light touch and sharp objects to the left lower extremity below the knee, left upper extremity, left side face Right-sided motor strength 5/5 Left shoulder 1/5 Left elbow and wrist 4-5 Left lower extremity at the hip 1/5 Left foot 4/5 Extrem: General: no edema Results Labs Labs: Short CBC 03/21/25 Range/Units 16:34 WBC 11.7 H (4.5-10.0) K/mm3 Hgb 15.5 (14.0-18.0) g/dL Hct 46.4 (42.0-52.0) % Plt Count 415 H (150-375) k/mm3 [facility] 03/21/25 16:34 Sodium 141 Potassium 4.0 Chloride 106 Carbon Dioxide 28 BUN 15 Creatinine 1.00 Glucose 94 Calcium 9.5 Cardiac Enzymes 03/21/25 03/21/25 Range/Units 16:34 19:24 Total Creatine Kinase 4052 H (55-170) U/L Troponin I < 0.012 < 0.012 (0.000-0.034) ng/mL Liver Function 03/21/25 Range/Units 16:34 Total Bilirubin 0.7 (0.2-1.3) mg/dL AST 62 H (17-59) U/L ALT 30 (6-50) U/L Alkaline Phosphatase 68 (38-126) U/L Albumin 4.3 (3.5-5.1) g/dL Assessment and Plan Assessment and plan (1) Rhabdomyolysis: Qualifiers: Rhabdomyolysis type: non-traumatic Qualified Code(s): M62.82 - Rhabdomyolysis Code(s): M62.82 - Rhabdomyolysis Status: Acute (2) Left-sided weakness: Code(s): R53.1 - Weakness Status: Acute (3) Near syncope: Code(s): R55 - Syncope and collapse Status: Acute (4) Atypical chest pain: Code(s): R07.89 - Other chest pain Status: Acute Plan 19-year-old male presents to [facility] ER on 03/21/2024 with left-sided weakness. Patient his began to lift weights, on 03/18 and 03/19 he has been doing moderate intensity lifting. On 03/20/2025 patient was at the gym around 8:00 p.m. with his friend, after stretching he was walking up stairs any suddenly felt weak, dizzy, almost passed out, left-sided chest and rib pain heavy/sharp, word- finding difficulty, left-sided arm and leg weakness and numbness. Feels as if he has been hydrating well. Went home to sleep, when he woke on 03/21/2025 his symptoms were persisting and sought further evaluation. He tells me for many years he has had infrequent episodes of dyspnea on exertion and left-sided chest pain which is sharp/heavy. No alleviating factors and they resolve on their own. 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 Denies energy drink intake. No secondhand smoke exposure. He tells me he is adopted, he was born in [place] to a mother addicted to heroin. He shows me an overall summary from [facility] which denotes the following: May 2004 patient was in department of pathology, diagnosed with cerebral ischemia of the second-degree (intraventricular hemorrhage), mildred trauma of the cervical spine, dislocation of C1-C2 forward, vertebrobasilar ischemia. 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 Hypertensive syndrome. Neurology consulted from the ER. NIH stroke scale of 5. Intermittent sinus tachycardia, anxious appearing. Blood pressure 126/75, afebrile. WBC 45810, platelets 415, hemoglobin 15.5, INR 1.1, PTT 29, D-dimer 0.27, Chem 7 within normal limits, AST slightly elevated at 62, creatinine kinase 4500, troponin negative x2. Chest x-ray no acute findings, head CT no acute findings. CTA head and neck showing no hemodynamically significant stenosis. Stenotic but patent left vertebral artery with dominant right vertebral artery. Patient was given 3 L normal saline bolus, started on continuous fluids. ----- I spoke with Dr. Garcia again. Advised aspirin, statin. MRI, CTA head and neck. Continue neuro checks. PT/OT, fall precaution, ambulate with assistance. Adverse effects, risk and benefits of medications discussed. Presyncope could be related stroke or dehydration. Continue telemetry, check echocardiogram. May require Holter monitor on discharge as well. Unclear association of rhabdo myolysis, could be simply due to his starting weight lifting. Non severe, continue fluids, recheck CK at midnight. 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 He patitis-C antibody has high false positive rate in general and an even higher false positive rate in neonates. Although, patient does have exposure risk as his mother was a heroin user. Will check acute hepatitis panel. follow LFTs Chest pain is noncardiac, reproducible. This is been going on for many years in infrequent fashion. Possibly costochondritis. EKG without ST changes. Troponin negative x2. ----- Patient wishes to be full code SCDs. Prior Studies I have reviewed the following patient records and this information was taken into consideration when formulating the assessment and plan.: previous hospitalizations Consultations Consultations: I have discussed the care of this pt with the consulting providers. (neurology) Time Spent with Patient Time with patient: 75 minutes or greater Hospitalist MIPS Advance Care Plan I have confirmed that the patient's Advanced Care Plan is present, code status is documented, or surrogate decision maker is listed in patient medical record.: Yes Medication Reconciliation I have utilized all available resources to obtain, update and review the patients current medications (includes all prescriptions, OTC, herbals, cannabis, and nutritional supplements).: Yes
--- NOTE | 2025-03-21 22:07 | WPCEDHO ---
ED Hand Off Checklist All vitals saved:Y IV Site documented:Y All med administrations documented:Y Triage Note Triage Note 8pm last night, patient was at 03/21/25 15:25 the gym and had a near syncopal episode, speech was delayed, CP, left sided weakness and sensation . Allergies No Known Allergies Allergy (Verified 03/21/25 15:42) Current Diagnoses Rhabdomyolysis (03/21/25) Other chest pain (03/21/25) Weakness (03/21/25) Syncope and collapse (03/21/25) Active Medications including assessments/comments Sodium Chloride (Normal Saline Iv) 1,000 mls @ 200 mls/hr IV CONT .Q5H REGGIE Last Admin: 03/21/25 19:45 Dose: 200 mls/hr Documented By: [facility] Infusion/Titration Document 03/21/25 19:45 [facility] (Rec: 03/21/25 19:45 [facility] [id number]) Intake IV Site Peripheral Access Right Antecubital Container Volume 1,000 Waste Amount 0 Dosing Infusion Rate 200 Cumulative Dose Not Applicable Increase/Decrease Started Elapsed Time Elapsed Time ( 0m minutes) Administered/Completed Medications Discontinued Medications Sodium Chloride (Normal Saline Iv) 1,000 mls @ 999 mls/hr IV CONT .Q1H1M STA Stop: 03/21/25 18:21 Last Admin: 03/21/25 17:42 Dose: Not Given Documented By: [facility] Non-Admin Reason: Patient Refuses Sodium Chloride (Normal Saline Iv) 1,000 mls @ 999 mls/hr IV CONT .Q1H1M STA Stop: 03/21/25 19:31 Last Infusion: 03/21/25 19:48 Dose: Infused Documented By: Admin: 03/21/25 19:13 Dose: 999 mls/hr Documented By: [facility] Sodium Chloride (Normal Saline Iv) 1,000 mls @ 999 mls/hr IV CONT .Q1H1M STA Stop: 03/21/25 20:16 Last Infusion: 03/21/25 20:40 Dose: Infused Documented By: [facility] Admin: 03/21/25 19:45 Dose: 999 mls/hr Documented By: [facility] Notes 03/21/25 17:36 Nurse Note by María Salcedo pt states he is not wanting an IV unless absolutely necessary. YOON Morales made aware. Initialized on 03/21/25 17:36 - END OF NOTE Interventions/Assessments Cardiac Monitoring Start: 03/21/25 15:21 Freq: Status: Active Protocol: Document 03/21/25 15:42 [facility] (Rec: 03/21/25 15:42 [facility] [id number]) Dimensional Engineer Assessment Dimensional Engineer Yes Applied Pulse Rate (60-100) 90 EKG Rythm Sinus Rhythm IV / Saline Lock, Insert Start: 03/21/25 15:21 Freq: Status: Active Protocol: Document 03/21/25 19:13 [facility] (Rec: 03/21/25 19:14 [facility] [id number]) IV Assessment Peripheral Access Right Antecubital IV Catheter Access Initiated IV Insertion Date 03/21/25 IV Insertion Time 19:14 Catheter Gauge 18 IV Insertion 1 Attempts IV Site Assessment WNL IV Care and WNL Maintenance PA: Cardiovascular Assessment Start: 03/21/25 15:21 Freq: Status: Active Protocol: Document 03/21/25 15:35 [facility] (Rec: 03/21/25 15:42 [facility] [id number]) Cardiovascular Assessment Cardiovascular Chest Pain Symptoms Skin Description Normal Color Heart Sounds Normal Jugular Vein None Distention Rhythm/Strength Apical Rhythm Regular Pulse Strength 3+ Normal EKG Rythm Sinus Rhythm Capillary Refill Bilateral Upper Extremity Capillary Refill Normal/Less than 2 Seconds Chest Pain Assessment Chest Pain Intensity 4 Chest Pain Location Left Chest Description and Ache,Pressure Symptoms Chest Pain Duration > 6 Hours Precipitating Physical Exertion Factors Alleviating Factors Rest PA: Neurological Assessment Start: 03/21/25 15:28 Freq: Status: Active Protocol: Document 03/21/25 15:35 [facility] (Rec: 03/21/25 15:42 [facility] [id number]) Neurological Assessment Level of Alert,Awake Consciousness Arousable to Verbal Orientation Oriented to Person,Oriented to Place,Oriented to Time Neurological Weakness, Focal Symptoms Behavior Cooperative Patient Able to Comprehend Comprehension Memory Description Intact Ability to Maintain Impaired Balance Facial Symmetry Symmetrical Speech Pattern Clear Ability to Swallow Normal Tongue Position Midline Finger to Nose Test Normal Performance Heel to Pedersen Test Minimal Impairment Left Hand(s) Extremity Movement Weak Quality Control Analyst Description Left Leg(s) Sensation Decreased Description Left Arm(s) Sensation Decreased Description Neurological Reflexes Corneal Reflex Present Bilateral Response Blink Reflex Present Response Cough/Gag Reflex Present [place] Coma Scale Eyes Open Verbal Oriented and Alert Motor Follows Commands Adeel Coma Total 15 Score PA: Respiratory Assessment Start: 03/21/25 15:21 Freq: Status: Active Protocol: Document 03/21/25 15:35 [facility] (Rec: 03/21/25 15:42 [facility] [id number]) Respiratory Assessment Symptoms None Effort Normal Pattern Regular Depth Normal Adult Capillary Normal/Less than 2 Seconds Refill Chest Expansion Symmetrical Cough Description None Last Vital Signs Temperature 98.4 F 03/21/25 22:03 Pulse Rate 90 03/21/25 22:03 Respiratory Rate 23 H 03/21/25 22:03 Pulse Oximetry 97 03/21/25 22:03 Blood Pressure 130/70 03/21/25 22:03 Blood Pressure Mean 86 03/21/25 22:03 Blood Pressure Position Standing 03/21/25 17:21 Oxygen Delivery Room Air 03/21/25 15:25 Weight 85.4 kg 03/21/25 15:25 Last Result - Abnormals Only WBC 11.7 K/mm3 (4.5-10.0) H 03/21/25 16:34 Plt Count 415 k/mm3 (150-375) H 03/21/25 16:34 [place]verse % (Auto) 9.8 % (2.6-8.5) H 03/21/25 16:34 [place]verse # (Auto) 1.1 K/mm3 (0.1-0.6) H 03/21/25 16:34 Abs Immat Gran (auto) 0.06 K/mm3 (0.00-0.031) H 03/21/25 16:34 Absolute Neuts (auto) 7.8 K/mm3 (1.3-6.7) H 03/21/25 16:34 AST 62 U/L (17-59) H 03/21/25 16:34 Total Creatine Kinase 4052 U/L (55-170) H 03/21/25 16:34 Most Recent Suicide Severity Rating Suicide Severity Rating NO RISK INDICATED 03/21/25 15:25
[2025-03-21] MEDS: ASPIRIN 81 MG ENTERIC TABLET PO (22:55)
[2025-03-21] MEDS: ATORVASTATIN 40 MG TABLET 80 MG PO (22:55)
--- NOTE | 2025-03-22 | ECHO_ITS ---
Patient Info Name: Tobin Lantigua Age: 19 years : 2005 Gender: Male Ht: 70 in Wt: 188 lbs BSA: 2.07 m2 HR: 87 bpm BP: 139 / 75 mmHg Technical Quality: Good Exam Date: 03/22/2025 9:01 AM Patient Status: I Admit Date: 03/21/2025 Exam Type: CA echo doppler w bubble study Complete two-dimensional, color flow and Doppler transthoracic echocardiogram is performed with agitated saline. Staff Referring Physician: Carmen Booth Anode Adjuster: Jeri Adams Attending Provider: Ventura Hinkle MD Contrast/Agitated Saline Contrast/Ag. Saline: Agitated Saline Amount: 20.00 ml Summary 1. Left ventricular chamber dimension is normal. 2. Left ventricular systolic function is normal, estimated at 65-70. 3. The left ventricular diastolic function is normal. 4. E/e' 6 is not elevated. 5. Agitated saline injection with and without valsalva maneuver opacified right side cardiac chambers with about 5 bubbles shunt to left side cardiac chambers suggestive of small patent foramen ovale. 6. Dilated inferior vena cava with >50% collapse upon inspiration consistent with elevated right atrial pressure, 10 mmHg. Left Ventricle E/e' 6 is not elevated. Left ventricular chamber dimension is normal. Left ventricular systolic function is normal, estimated at 65-70. The left ventricular diastolic function is normal. Right Ventricle Right ventricular chamber dimension is normal. Right ventricular systolic function is normal and with normal TAPSE 2.6 cm. Left Atria Left atrial chamber dimension is normal. Right Atria Right atrial chamber dimension is normal. Atrial Septum Interatrial septum not well visualized by 2D and agitated saline imaging. Agitated saline injection with and without valsalva maneuver opacified right side cardiac chambers with about 5 bubbles shunt to left side cardiac chambers suggestive of small patent foramen ovale. Aortic Valve The aortic valve is trileaflet. There is no aortic valve stenosis. There is no aortic valve regurgitation. Pulmonic Valve There is no pulmonic regurgitation. Mitral Valve There is no mitral valve stenosis. There is no mitral valve regurgitation. Tricuspid Valve There is no tricuspid valve regurgitation. Pericardium/Pleural There is no pericardial effusion. Inferior Vena Cava Dilated inferior vena cava with >50% collapse upon inspiration consistent with elevated right atrial pressure, 10 mmHg. Aorta The aortic root size at the sinus of Valsalva is normal. Left Ventricular Outflow Tract Name Value Normal LVOT 2D LVOT Diameter 20.3 mm LVOT Doppler LVOT Peak Velocity 115 cm/s LVOT Peak Gradient 5 mmHg LVOT Mean Gradient 2 mmHg LVOT VTI 19 cm LVOT Stroke Volume 62 ml LVOT CO 5.4 l/min LVOT CI 2.6 l/min/m2 Pulmonic Valve Name Value Normal RVOT Doppler RVOT Peak Velocity 90 cm/s RVOT Peak Gradient 3 mmHg PV Doppler PV Peak Velocity 121 cm/s PV Peak Gradient 6 mmHg Mitral Valve Name Value Normal MV Diastolic Function MV E Peak Velocity 96 cm/s 60-126 MV A Peak Velocity 73 cm/s 18-67 MV E/A 1.3 1.2-3.6 MV Decel Time (PW) 228 ms MV Annular TDI MV E/e' (Septal) 6.8 3.6-10.1 MV E/e' (Lateral) 6.0 2.0-7.9 MV E/e' (Average) 6.4 2.9-8.5 Tricuspid Valve Name Value Normal Estimated PAP/RSVP RA Pressure 10 mmHg Aortic Valve Name Value Normal AV Doppler AV Peak Velocity 136 cm/s AV Peak Gradient 7 mmHg AV Area (Cont Eq Marcos) 2.7 cm2 AV DI (Marcos) 0.84 AV Regurgitation 2D LVOT Area 3.2 cm2 Ventricles Name Value Normal LV Dimensions 2D/MM IVS Diastolic Thickness (2D) 8.8 mm 6.6-11.2 LVID Diastole (2D) 54.0 mm 46.3-60.5 LVIW Diastolic Thickness (2D) 9.5 mm 7.0-10.7 LVID Systole (2D) 34.9 mm 29.2-40.7 LVOT Diameter 20.3 mm LV Mass (2D Cubed) 183.26 g 117.29-202.40 LV Mass Index (2D Cubed) 89 g/m2 Relative Wall Thickness (2D) 0.35 LV Fractional Shortening/Ejection Fraction 2D/MM LV Fractional Shortening (2D) 35 % 28-42 LV EF (2D Teichholz) 64 % LV Diastolic Volume (4C MOD) 140 ml LV EF (4C MOD) 57 % LV Diastolic Volume (2C MOD) 150 ml LV EF (2C MOD) 70 % LV Diastolic Volume (BP MOD) 151 ml LV Diastolic Volume Index (BP MOD) 73 ml/m2 LV Systolic Volume (BP MOD) 52 ml LV Systolic Volume Index (BP MOD) 25 ml/m2 LV EF (BP MOD) 66 % LV Diastolic Length (4C) 88.6 mm 73.7-100.9 LV Systolic Length (4C) 78.2 mm 58.9-84.2 LV Stroke Volume (4C MOD) 80 ml Atria Name Value Normal LA Dimensions LA Volume (4C A-L) 37 ml LA Volume (BP A-L) 37 ml 36-106 RA Dimensions RA Systolic Major Omak Length (4C) 44.7 mm 44.5-60.0 RA Area (4C) 13.7 cm2 12.8-23.4 Report Signatures
[2025-03-22 00:07] VITALS: BMI 26.3
[2025-03-22 01:45] LABS: Hematocrit 40.4 % (42.0-52.0); Hemoglobin 13.5 g/dL (14.0-18.0); Immature Granulocyte Percent A 0.4 % (0-0.5); Lymphocytes Absolute Auto 2.52 K/mm3 (0.9-3.2); Mean Corpuscular HGB Conc 33.4 g/dl (32-36); Mean Corpuscular Hemoglobin 31.5 pg (26-34); Mean Corpuscular Volume 94.2 fl (80-100); Nucleated Red Blood Cells Absolute Auto 0.000 K/mm3 (0.0-0.012); Nucleated Red Blood Cells Perc 0.0 % (0.0-0.2); Platelet Count Result 347 k/mm3 (150-375); Red Blood Count 4.29 M/mm3 (4.6-6.20); White Blood Count 9.4 K/mm3 (4.5-10.0)
[2025-03-22 01:57] LABS: Alanine Aminotransferase 28 U/L (6-50); Albumin Level 3.5 g/dL (3.5-5.1); Alkaline Phosphatase 59 U/L (38-126); Anion Gap 3 mmol/L (4-12); Aspartate Amino Transferase 55 U/L (17-59); Bilirubin,Total 0.6 mg/dL (0.2-1.3); Blood Urea Nitrogen 10 mg/dL (9-20); Calcium 8.5 mg/dL (8.4-10.2); Carbon Dioxide 25 mmol/L (22-30); Chloride 111 mmol/L (98-107); Cholesterol 88 mg/dL (0-200); Estimated CRCL calculation 137 ml/min; Estimated Glomerular Filt Rate > 60; Glucose 121 mg/dL (65-110); HDL Direct 19 mg/dL; Magnesium 1.7 mg/dL (1.6-2.3); Potassium 3.8 mmol/L (3.4-5.0); Sodium 139 mmol/L (137-145); Total Protein 6.2 g/dL (6.3-8.2); Triglycerides 93 mg/dL (<150)
[2025-03-22 02:30] LABS: Creatine Kinase 4468 U/L (55-170)
[2025-03-22 02:32] LABS: Hepatitis B Surface Antigen Negative (Negative)
[2025-03-22 02:38] LABS: HAV RESULT Negative (Negative); Hepatitis B Core IgM Result Negative (Negative)
--- NOTE | 2025-03-22 04:54 | PC.NURSE ---
Patient admitted to room 251 at 2245. Patient has sensory deficit with left arm and leg. Patient has numbness but also sharp left leg pain with movement. Patient has hemianopia on the left side. Patient states he had 2 nose bleeds today. Patient also states he drank atleast 7 liters of fluid the day prior but barely urinated. I bladder scanned patient because he stated that he didnt feel like he needed to urinate. Bladder scan 545. Patient instructed to urinate in the urinal. Took about 10 minutes but he peed 600 ml. Patient states that it was all numb and he couldnt even feel himself urinating. Patient has difficulty finding and speaking some words, takes long to answer at times, had a couple head tics while doing the admission. Patient stable walking and he is refusing the bed alarm at this time.
[2025-03-22] MEDS: SODIUM CHLORIDE 0.9% IV 1,000 ML 200 ML IV CONT ×3 (05:50→17:45)
[2025-03-22 06:00] VITALS: BP 121/62; PULSE 61; RESP 16; TEMP 36.2; O2SAT 98
[2025-03-22 08:00] VITALS: PULSE 80
[2025-03-22] MEDS: ASPIRIN 81 MG ENTERIC TABLET PO (08:39)
--- NOTE | 2025-03-22 10:31 | IVDEFINITY ---
Prior to administration of IV Definity the patient was educated on the risks and benefits of the imaging enhancing agent including potential adverse side effects. The patient verbalized understanding. Allergies were verified. No exclusion criteria were identified and at least one of the following inclusion criteria were met: 1) physician request, 2) patient technically difficult to image (per the [place] [employer] guidelines of two or more segments not discernable within the apical view), or 3) questionable left ventricular function. ?
[2025-03-22 12:00] VITALS: PULSE 85
[2025-03-22 14:00] VITALS: BP 151/67; PULSE 92; RESP 20; TEMP 36.8; O2SAT 98
[2025-03-22 16:00] VITALS: PULSE 92
--- NOTE | 2025-03-22 20:03 | PCCCNOTE ---
Received a call from Tameka Akbar ([phone]) stating that she is calling on behalf of the patient and is a close friend and a local nurse. Patient was on the call as well and Tameka asked if she could discuss the patient's care with the patient's permission. Patient stated that it was okay for me to discuss his care with Tameka. Tameka demanded that patient be transferred to [facility] where his girlfriend works and where he will get better and more urgent testing and care. Tameka and patient stated that it was a delay in care to not have his routine ordered MRI done by today and that he wanted the hospitalist, Marge, to initiate a transfer for a STAT MRI. Patient's nurse was notified who states that she had been in contact with MRI about patient's urgent request. Patient's nurse attempted to call Marge and left a message and then reached out to Dr. Hinkle who was overseeing Marge's patient's. Dr. Hinkle discussed with patient that it may be tomorrow until MRI could be completed and patient and Tameka stated that it was too urgent to wait until tomorrow. Tameka and patient called care coordination back and asked if we could have the nurse call report to [facility]'s ER and I explained that the patient was agreeing to sign out AMA and that we would not be able to call report to another hospital. Tameka stated, Can you agree that [facility] dropped the ball on doing an appropriate stroke workup? to which I replied that I did not agree with that statement and that any questions regarding patient's treatments and care should be addressed to the patient's nurse and provider. Tameka and patient had questions regarding insurance covering hospital stay if he signed out AMA and I explained that there wasn't any reason to think that insurance would not cover his hospital stay beyond any plan specific copays and coinsurance. Case discussed with child care counselor, Mary, who provided input in regards to signing out AMA and having insurance cover the hospital stay or not.
--- NOTE | 2025-03-23 14:25 | P.PNIM_ITS ---
Assessment and Plan Assessment and Plan (1) Rhabdomyolysis: Qualifiers: Rhabdomyolysis type: non-traumatic Qualified Code(s): M62.82 - Rhabdomyolysis Code(s): M62.82 - Rhabdomyolysis Status: Acute (2) Left-sided weakness: Code(s): R53.1 - Weakness Status: Acute (3) Near syncope: Code(s): R55 - Syncope and collapse Status: Acute (4) Atypical chest pain: Code(s): R07.89 - Other chest pain Status: Acute Plan 19-year-old male presents to [facility] on 03/21/2024 with left-sided weakness. Patient his began to lift weights, on 03/18 and 03/19 he has been doing moderate intensity lifting. On 03/20/2025 patient was at the gym around 8:00 p.m. with h is friend, after stretching he was walking up stairs any suddenly felt weak, dizzy, almost passed out, left-sided chest and rib pain heavy/sharp, word- finding difficulty, left-sided arm and leg weakness and numbness. Feels as if he has been hydrating well. Went home to sleep, when he woke on 03/21/2025 his symptoms were persisting and sought further evaluation. He tells me for many years he has had infrequent episodes of dyspnea on exertion and left-sided chest pain which is sharp/heavy. No alleviating factors and they resolve on their own. 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 Denies energy drink intake. No secondhand smoke exposure. He tells me he is adopted, he was born in [place] to a mother addicted to heroin. He shows me an overall summary from [facility] which denotes the following: May 2004 patient was in department of pathology, diagnosed with cerebral ischemia of the second-degree (intraventricular hemorrhage), trauma of the cervical spine, dislocation of C1-C2 forward, vertebrobasilar ischemia. 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 Hypertensive syndrome. Neurology consulted from the ER. NIH stroke scale of 5. Intermittent sinus tachycardia, anxious appearing. Blood pressure 126/75, afebrile. WBC 10932, platelets 415, hemoglobin 15.5, INR 1.1, PTT 29, D-dimer 0.27, Chem 7 within normal limits, AST slightly elevated at 62, creatinine kinase 4500, troponin negative x2. Chest x-ray no acute findings, head CT no acute findings. CTA head and neck showing no hemodynamically significant stenosis. Stenotic but patent left vertebral artery with dominant right vertebral artery. Patient was given 3 L normal saline bolus, started on continuous fluids. ----- Dr. Garcia was consulted: advised aspirin, statin. MRI, CTA head and neck. Continue neuro checks. PT/OT, fall precaution, ambulate with assistance. Adverse effects, risk and benefits of medications discussed. Presyncope could be related stroke or dehydration. Continue telemetry, check echocardiogram. May require Holter monitor on discharge as well- i discussed it with pt-will order once discharged Unclear association of rhabdo myolysis, could be simply due to his starting weight lifting. Non severe, continue fluids, recheck CK at midnight. Will trend CK. 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 Hepatitis-C antibody has high false positive rate in general and an even higher false positive rate in neonates. Although, patient does have exposure risk as his mother was a heroin user. Will check acute hepatitis panel. follow LFTs Chest pain is noncardiac, reproducible. This is been going on for many years in infrequent fashion. Possibly costochondritis. EKG without ST changes. Troponin negative x2. ----- Patient wishes to be full code SCDs. Medical Record Review I have reviewed the following patient records and this information was taken into consideration when formulating the assessment and plan.: previous labs, previous ER visits, previous hospitalizations and previous clinic visits Time Spent With Patient Time with patient: Greater than 35 minutes Subjective Date/time seen: 03/22/25 0900 Interval history: 19-year-old male presents to [facility] on 03/21/2024 with left-sided weakness. Patient his began to lift weights, on 03/18 and 03/19 he has been doing moderate intensity lifting. On 03/20/2025 patient was at the gym around 8:00 p.m. with his friend, after stretching he was walking up stairs any suddenly felt weak, dizzy, almost passed out, left-sided chest and rib pain heavy/sharp, word- finding difficulty, left-sided arm and leg weakness and numbness. Feels as if he has been hydrating well. Went home to sleep, when he woke on 03/21/2025 his symptoms were persisting and sought further evaluation. He tells me for many years he has had infrequent episodes of dyspnea on exertion and left-sided chest pain which is sharp/heavy. No alleviating factors and they resolve on their own. 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 No secondhand smoke exposure. He tells me he is adopted, he was born in [place] to a mother addicted to heroin. He shows me an overall summary from [facility] which denotes the following: May 2004 patient was in department of pathology, diagnosed with cerebral ischemia of the second-degree (intraventricular hemorrhage), trauma of the cervical spine, dislocation of C1-C2 forward, vertebrobasilar ischemia. 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 Hypertensive syndrome. Neurology consulted from the ER. NIH stroke scale of 5. Intermittent sinus tachycardia, anxious appearing. Blood pressure 126/75, afebrile. WBC 24294, platelets 415, hemoglobin 15.5, INR 1.1, PTT 29, D-dimer 0.27, Chem 7 within normal limits, AST slightly elevated at 62, creatinine kinase 4500, troponin negative x2. Chest x-ray no acute findings, head CT no acute findings. CTA head and neck showing no hemodynamically significant stenosis. Stenotic but patent left vertebral artery with dominant right vertebral artery. Patient was given 3 L normal saline bolus, started on continuous fluids. pt is seen and examined. he has no neurological deficit. denies any pain, no n/v/d. awaiting echo, MRI and neurology consult. Review of Systems Review of Systems: All systems reviewed & are unremarkable except as noted in HPI and below (Subjective) Exam Const: General: comfortable and no acute distress Other: A&O x4. Reproducible chest pain at the left ribs and left upper chest. No lesions, no rashes. HENMT: Mouth: Yes moist mucous membranes Eyes: Pupils: Equal, round and reactive pupils present Neck: Neck: supple Resp: Effort & Inspection: normal respiratory effort Auscultation: clear to auscultation bilaterally Cardio: Rate: regular rate Rhythm: regular rhythm GI: Inspection: distended Neuro: Cranial nerves: Yes Equal, round and reactive pupils present Other: Visual field intact, no facial droop. Tongue and uvula midline. Deep tendon reflexes intact. No ataxia. Sensation significantly decreased to light touch and sharp objects to the left lower extremity below the knee, left upper extremity, left side face Right-sided motor strength 5/5 Left shoulder 1/5 Left elbow and wrist 4-5 Left lower extremity at the hip 1/5 Left foot 4/5 Extrem: General: no edema Objective Data Vital Signs Vital Signs: Vital Signs - 24 hr 03/22/25 16:00 Pulse Rate 92 Intake/Output Intake/Output: Intake & Output 03/20/25 03/21/25 03/22/25 03/23/25 23:59 23:59 23:59 23:59 Intake Total 1999 2236 Output Total 600 Balance 1999 1636 Meds/Results Radiology Results: ITS Impressions Head CT 03/21/25 16:26 Impression: 1.No acute intracranial abnormality. Chest X-Ray 03/21/25 16:30 Impression: No acute cardiopulmonary abnormality. Head/Neck CTA 03/21/25 21:12 IMPRESSION: No hemodynamically significant stenosis is noted of the cervical and intracranial arterial vasculature. Stenotic but patent left vertebral artery with dominant right vertebral artery.
--- NOTE | 2025-03-23 14:27 | P.DS_ITS ---
DS: Admitting Diagnosis Discharge Date 03/22/25 Admitting Diagnosis dizzy DS: Discharge Diagnosis Discharge Diagnosis (1) Rhabdomyolysis: Qualifiers: Rhabdomyolysis type: non-traumatic Qualified Code(s): M62.82 - Rhabdomyolysis Code(s): M62.82 - Rhabdomyolysis Status: Acute (2) Left-sided weakness: Code(s): R53.1 - Weakness Status: Acute (3) Near syncope: Code(s): R55 - Syncope and collapse Status: Acute (4) Atypical chest pain: Code(s): R07.89 - Other chest pain Status: Acute DS: Summary Hospital Course Hospital Course: 19-year-old male presents to [facility] ER on 03/21/2024 with left-sided weakness. Patient his began to lift weights, on 03/18 and 03/19 he has been doing moderate intensity lifting. On 03/20/2025 patient was at the gym around 8:00 p.m. with his friend, after stretching he was walking up stairs any suddenly felt weak, dizzy, almost passed out, left-sided chest and rib pain heavy/sharp, word- finding difficulty, left-sided arm and leg weakness and numbness. Feels as if he has been hydrating well. Went home to sleep, when he woke on 03/21/2025 his symptoms were persisting and sought further evaluation. He tells me for many years he has had infrequent episodes of dyspnea on exertion and left-sided chest pain which is sharp/heavy. No alleviating factors and they resolve on their own. 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 Denies energy drink intake. No secondhand smoke exposure. He tells me he is adopted, he was born in [place] to a mother addicted to heroin. He shows me an overall summary from [facility] which denotes the following: May 2004 patient was in department of pathology, diagnosed with cerebral ischemia of the second-degree (intraventricular hemorrhage), trauma of the cervical spine, dislocation of C1-C2 forward, vertebrobasilar ischemia. 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 Hypertensive syndrome. Neurology consulted from the ER. NIH stroke scale of 5. Intermittent sinus tachycardia, anxious appearing. Blood pressure 126/75, afebrile. WBC 61343, platelets 415, hemoglobin 15.5, INR 1.1, PTT 29, D-dimer 0.27, Chem 7 within normal limits, AST slightly elevated at 62, creatinine kinase 4500, troponin negative x2. Chest x-ray no acute findings, head CT no acute findings. CTA head and neck showing no hemodynamically significant stenosis. Stenotic but patent left vertebral artery with dominant right vertebral artery. Patient was given 3 L normal saline bolus, started on continuous fluids. ----- Dr. Garcia was consulted: advised aspirin, statin. MRI, CTA head and neck. Continue neuro checks. PT/OT, fall precaution, ambulate with assistance. Adverse effects, risk and benefits of medications discussed. Presyncope could be related stroke or dehydration. Continue telemetry, check echocardiogram. May require Holter monitor on discharge as well- i discussed it with pt-will order once discharged Unclear association of rhabdo myolysis, could be simply due to his starting weight lifting. Non severe, continue fluids, recheck CK at midnight. Will trend CK. 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 Hepatitis-C antibody has high false positive rate in general and an even higher false positive rate in neonates. Although, patient does have exposure risk as his mother was a heroin user. Will check acute hepatitis panel. follow LFTs Chest pain is noncardiac, reproducible. This is been going on for many years in infrequent fashion. Possibly costochondritis. EKG without ST changes. Troponin negative x2. ----- Patient wishes to be full code SCDs. pt left in [facility] evening AMA without MRI, neurology, holter order Status at Discharge Functional status at discharge: independent ambulation Overall status at discharge: patient is back to baseline Time Spent with Patient Time attestation: Total time spent providing and/or coordinating discharge services: Specific discharge activities: pt left ama Exam Narrative: DR Hinkle was notified of pt leaving ama Discharge Plan Discharge Attending physician on discharge: Ventura Hinkle Consulting providers: Anil Lozano; Margot Garcia Patient Disposition: Left Against Medical Advice Patient Language: Jamaican Discharge Medications: No Action dextroamphetamine-amphetamine 10 mg tablet 10 mg PO BID Date of admission: 03/21/25 18:32 Primary Care Provider: Edgar,Barrie García Admitting Provider: Ventura Hinkle Attending physician on admission: Ventura Hinkle Condition: Stable
== END 2025-03-22 06:55 | disposition left against medical advice (07) ==
LOC: ANHED 18:38 → ANH3MEDSUR 19:29 → ANH2MED 22:06
PROVIDERS: General Practice; Admitting Provider Family Medicine; Emergency Provider Physician Assistant; PCP Emergency Medicine; Visit Provider Family Medicine
DX: R55 Syncope and collapse (principal); R53.1 Weakness; M62.82 Rhabdomyolysis; R07.89 Other chest pain; Z53.29 Procedure and treatment not carried out because of patient's decision for other reasons
CPT/HCPCS: 36415; 70450; 70496; 70498; 71045; 80053; 80061; 80074; 82550; 83735; 84484; 85025; 85380; 85610; 85730; 93005; 93306; 96360; 96361; 96375; 97162; 97166; 99285; A9270; G0378; J7030; Q9967